=== PATIENT | male | born 1970 | race Caucasian/White ===

== ENCOUNTER → 2016-12-30 | Outpatient (CLI) | payer BC ==
--- NOTE | 2016-12-30 08:05 | RAD ---
Indication: Left ankle swelling and bruising. Time of exam 0757 hours. No prior studies are available for comparison. 2 views of the left ankle were obtained. There is a lateral plate and numerous screws transfixing the distal tibia fracture. Fracture line does remain partly visible. Ankle mortise is well-maintained. The talar dome is smooth. There are numerous well-corticated osseous densities adjacent to the medial malleolus consistent with old avulsions. No acute fracture is seen. There is moderate soft tissue swelling noted both medial and laterally. Impression: Soft tissue swelling and chronic changes. No acute fracture is detected.
== END | disposition home or self-care (01) ==
LOC: DXRADRC 07:47
PROVIDERS: ATTEND Physician Assistant Medical
DX: M25.472 Effusion, left ankle (principal); R23.3 Spontaneous ecchymoses
CPT/HCPCS: 73600